=== PATIENT | male | born 1945 | race Caucasian/White ===

== ENCOUNTER → 2016-11-08 | Outpatient (CLI) | payer MEDICARE | LOC: LAB.O 11:22 | PROVIDERS: ATTEND Psychiatry & Neurology Neurology | DX: Z01.812 Encounter for preprocedural laboratory examination (principal) ==

== ENCOUNTER → 2016-11-24 | Outpatient (CLI) | payer MEDICARE | END | disposition home or self-care (01) | LOC: LAB.O 12:22 | PROVIDERS: ATTEND Psychiatry & Neurology Neurology | DX: Z01.812 Encounter for preprocedural laboratory examination (principal) ==

== ENCOUNTER → 2017-03-14 | Outpatient (CLI) | payer MEDICARE ==
--- NOTE | 2017-03-15 15:30 | RAD ---
EXAM DESCRIPTION: Ankle,Left 3 Views CLINICAL HISTORY: 71 years Male, ANKLE PAIN FOR 1 WEEK COMPARISON: None. FINDINGS: 3 views of the left ankle show mild diffuse soft tissue swelling without acute fracture or malalignment. The tibiotalar joint space and talar dome are well-maintained. There are small calcaneal spurs at the insertion sites of the plantar fascia and Achilles tendon. IMPRESSION: Probable mild soft tissue swelling without fracture or malalignment. Calcaneal spurring. Electronically signed by: Pablo Gray MD 03/15/2017 3:30 PM CDT Workstation: [facility]
== END ==
LOC: YCFC.O 14:07
PROVIDERS: ATTEND Nurse Practitioner Family
DX: M25.572 Pain in left ankle and joints of left foot (principal); M77.32 Calcaneal spur, left foot

== ENCOUNTER → 2017-07-26 | Outpatient (CLI) | payer MEDICARE | END | disposition home or self-care (01) | LOC: GMAL 15:04 | PROVIDERS: ATTEND Family Medicine | DX: D51.3 Other dietary vitamin B12 deficiency anemia (principal); Z12.5 Encounter for screening for malignant neoplasm of prostate; R53.83 Other fatigue; E55.9 Vitamin D deficiency, unspecified | CPT/HCPCS: 82306; 82607; 84443; G0103 ==

== ENCOUNTER → 2018-01-25 | Outpatient (CLI) | payer MEDICARE | LOC: GMAL 14:24 | PROVIDERS: ATTEND Family Medicine | DX: D51.3 Other dietary vitamin B12 deficiency anemia (principal) ==

== ENCOUNTER 2018-05-01 11:16 | Emergency (ER) | payer MEDICARE ==
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
[2018-05-01 13:57] VITALS: BP 112/70; TEMP 98; O2SAT 95
== END 2018-05-01 13:57 | disposition home or self-care (01) ==
LOC: ER 11:16
DX: S82.142A Displaced bicondylar fracture of left tibia, initial encounter for closed fracture (principal); S39.012A Strain of muscle, fascia and tendon of lower back, initial encounter; S20.212A Contusion of left front wall of thorax, initial encounter; J44.9 Chronic obstructive pulmonary disease, unspecified; J45.909 Unspecified asthma, uncomplicated; Z86.73 Personal history of transient ischemic attack (TIA), and cerebral infarction without residual deficits; Z79.899 Other long term (current) drug therapy; W55.22XA Struck by cow, initial encounter; Y92.9 Unspecified place or not applicable

== ENCOUNTER → 2018-05-10 | Outpatient (CLI) | payer MEDICARE ==
--- NOTE | 2018-05-10 13:34 | RAD ---
EXAM DESCRIPTION: Knee,Left Complete CLINICAL HISTORY: 72 years Male, KNEE PAIN TECHNIQUE: 4 views of the left knee were performed. COMPARISON: Radiographs of the left knee dated 05/01/2018. FINDINGS: The visualized bones appear well mineralized. Mildly comminuted fracture of the lateral tibial plateau is again noted. There is tiny suprapatellar joint effusion. Atherosclerotic calcifications of the popliteal artery are identified. The soft tissues appear grossly unremarkable. IMPRESSION: No significant interval healing of the lateral tibial plateau fracture. Electronically signed by: Pati Howell MD 05/10/2018 1:33 PM CDT
== END ==
LOC: RAD 09:16
PROVIDERS: ATTEND Orthopaedic Surgery
DX: M25.562 Pain in left knee (principal)

== ENCOUNTER → 2018-06-15 | Outpatient (CLI) | payer MEDICARE ==
--- NOTE | 2018-06-15 12:58 | RAD ---
EXAM DESCRIPTION: Knee,Left Complete CLINICAL HISTORY: FX COMPARISON: May 18, 2018 IMPRESSION: 4 views of the left knee again demonstrate comminuted nondisplaced lateral tibial plateau fracture. There remains indistinctness of the fracture margin suggesting partial healing without complete bony healing or callus formation. Fracture fragments are unchanged from previous exam. Small suprapatellar joint effusion is similar to decreased from previous. Severe vascular calcifications are identified. Electronically signed by: Phillip Mills MD 06/15/2018 12:57 PM CDT
== END ==
LOC: RAD 09:04
PROVIDERS: ATTEND Orthopaedic Surgery
DX: S82.102D Unspecified fracture of upper end of left tibia, subsequent encounter for closed fracture with routine healing (principal)

== ENCOUNTER → 2018-07-16 | Outpatient (CLI) | payer MEDICARE ==
--- NOTE | 2018-07-16 15:44 | RAD ---
EXAM DESCRIPTION: Knee,Left Complete CLINICAL HISTORY: FX OF TIBIAL PLATEAU COMPARISON: 01 May 2018 TECHNIQUE: 3 views left FINDINGS: A lateral tibial plateau fracture is observed. No significant depression is observed. A small joint effusion is seen. Calcific atherosclerotic changes observed in the popliteal artery. IMPRESSION: Lateral tibial plateau fracture is again observed. The fracture is become less well-defined suggesting interval healing. Electronically signed by: Sascha Schwab MD 07/16/2018 3:42 PM CDT
== END ==
LOC: RAD 09:21
PROVIDERS: ATTEND Orthopaedic Surgery
DX: S82.102D Unspecified fracture of upper end of left tibia, subsequent encounter for closed fracture with routine healing (principal)

== ENCOUNTER → 2018-07-31 | Outpatient (CLI) | payer MEDICARE | LOC: GMAL 14:35 | PROVIDERS: ATTEND Family Medicine | DX: E55.9 Vitamin D deficiency, unspecified (principal); Z12.5 Encounter for screening for malignant neoplasm of prostate | CPT/HCPCS: 82306; G0103 ==

== ENCOUNTER → 2018-09-14 | Outpatient (CLI) | payer MEDICARE ==
--- NOTE | 2018-09-15 08:52 | RAD ---
EXAM: Knee,Left Complete CLINICAL HISTORY: FX OF TIBIAL PLATEAU COMPARISON STUDY: Left knee x-rays July 16, 2018 and June 15, 2018 TECHNICAL: 6 x-rays of the left knee FINDINGS: A vertical fracture through the lateral tibial plateau is again identified. A separation of the lateral articular surface is similar to the recent comparison study. There is incomplete fusion at this time. There is no new fracture or dislocation. There is no joint effusion. Atherosclerotic calcifications are present. IMPRESSION: Ongoing healing of the left lateral tibial plateau fracture. Electronically signed by: Ron Batista MD 09/15/2018 8:50 AM [facility]
== END ==
LOC: RAD 07:37
PROVIDERS: ATTEND Orthopaedic Surgery
DX: S82.102D Unspecified fracture of upper end of left tibia, subsequent encounter for closed fracture with routine healing (principal)

== ENCOUNTER → 2019-01-16 | Outpatient (CLI) | payer MEDICARE ==
[~2019-01-16] MED LIST: ALBUTEROL SULFATE 2.5 MG/3 ML VIAL NEB ONE
== END ==
LOC: RESP 10:15
PROVIDERS: ATTEND Family Medicine
DX: J44.1 Chronic obstructive pulmonary disease with (acute) exacerbation (principal)
CPT/HCPCS: 94060; J7611

== ENCOUNTER → 2019-03-12 | Outpatient (CLI) | payer MEDICARE | LOC: GMAL 10:33 | PROVIDERS: ATTEND Family Medicine | DX: D51.3 Other dietary vitamin B12 deficiency anemia (principal); I10 Essential (primary) hypertension; E78.2 Mixed hyperlipidemia ==

== ENCOUNTER → 2019-12-25 | Outpatient (CLI) | payer MEDICARE ==
--- NOTE | 2019-12-25 16:44 | MRI ---
EXAM DESCRIPTION: Lumbar Spine w/o Contrast : Magnetic Resonance Imaging. CLINICAL HISTORY: COMPRESSION FX OF L2 COMPARISON: MRI lumbar spine without contrast December 2015. TECHNIQUE: Multiplanar, multiple standard sequences, non contrast MRI, lumbar spine. FINDINGS: L5-S1: The disc is well visualized on axial T2 series 501, image 3. Disc desiccation with posterior disc space loss and minimal endplate reactive changes. Posterior midline bulge 4 mm abutting the thecal sac and the descending right S1 nerve above the lateral subarticular recess. Retrolisthesis 3 mm. Degenerative hypertrophy of the facet joints and posterior flavum ligaments (canal elements). AP canal diameter 10 mm, no change from the prior study. Moderate to severe narrowing of the right foramen and stenosis of the left foramen, stable from the prior study T12-L1: Superior L1 endplate is depressed with 2 mm retropulsion but not touching the cord. Marrow edema in the upper vertebral body and endplate with minimal extension into the base of the left pedicle. Otherwise normal edema in the posterior elements. Normal signal in the T12-L1 disc. No bulging posteriorly. AP canal diameter at the level of retropulsion is 10.5 mm, 16 mm on the prior study. Minimal hypertrophic degenerative changes in the canal elements. Bilateral mild foraminal narrowing. Conus terminates just above the L1-L2 disc. L1-L2: Minimal depression of the superior L2 endplate with marrow edema. 2 mm retropulsion of the posterior endplate. No marrow edema in the pedicles with more marrow edema on the left side of the vertebral bodies and the right. Minimal desiccation of the disc expanding into the concave endplate. AP canal diameter 11 mm, 15 mm on the prior study. Inferior endplate unremarkable. No significant disc bulge. Minimal degenerative hypertrophy of the canal elements. Bilateral mild to moderate foraminal narrowing more on the right. L2-L3: Concavity of the superior L3 endplate which is depressed and containing fracture lines and marrow edema. No retropulsion. No marrow edema in the pedicles. Disc expanding into the depressed superior endplate is desiccated but not bulging. Hypertrophic degenerated canal elements with AP canal diameter 10 mm. Mild left foraminal narrowing and mild to moderate right foraminal narrowing. L3-L4: Disc desiccation and disc space loss posterior. On the moderate endplate reactive changes. Hypertrophic canal elements bilaterally with AP canal diameter 8 mm. Mild to moderate narrowing left foramen and moderate narrowing of the right foramen. L4-L5: Disc desiccation with disc space maintained. Minimal posterior endplate reactive changes. Posterior broad-based bulge with focal protrusion in the midline abutting the thecal sac. Hypertrophic degenerated canal elements bilaterally. AP canal diameter 5.5 mm. Bilateral moderate foraminal narrowing, more on the left. T11: Marked compression of the central and anterior vertebral body. Minimal marrow edema centrally and edema in the T10-T11 disc and T11-T12 disc. Retropulsion just below the superior endplate with possible canal stenosis. Please see thoracic spine MRI images and report. No significant scoliosis. Paravertebral soft tissues minimal soft tissue edema at the L1 level.. Distal cord normal signal and caliber. Heterogeneous marrow signal in the remaining vertebral bodies and the posterior elements. Vertebral bodies are not compressed at any level. IMPRESSION: 1. Multiple superior endplate compression injuries at L1, L2, and L3 with minimal retropulsion at L1, and L2. Borderline mild central canal stenosis at both levels which has progressed since the prior study. The T12-L1 fracture extends into the base of the left pedicle. The fractures are stable. 2. 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 3. L4-L5 posterior midline disc protrusion and severe central canal stenosis and bilateral subarticular recess narrowing versus stenosis. This is progressed since the prior study. 4. Severe central and anterior compression type vertebral body fracture T11. Please see thoracic spine MR images and report. Electronically signed by: Graham Gillespie MD 12/25/2019 4:42 PM CDT
--- NOTE | 2019-12-25 17:20 | MRI ---
EXAM DESCRIPTION: Thoracic Spine w/o Contrast: Magnetic Resonance Imaging. CLINICAL HISTORY: RADICULOPATHY COMPARISON: MRI scan lumbar spine on this visit and CT scan lumbar spine December 08. Lumbar radiographs December 15. TECHNIQUE: Multiplanar, multiple standard sequences, non contrast MRI, thoracic spine. FINDINGS: Marked compression fracture of the central and anterior mid T11 vertebral body with anterior bulging of the anterior cortical wall and retropulsion of the posterior vertebral body 5.5 mm. The retropulsed segment is impressing on the distal thoracic cord with AP canal diameter 6 mm. No edema in the cord. Desiccation of the T11-T12 disc but no significant bulging. Moderate to severe narrowing right foramen and left foraminal stenosis. Minimal bilateral facet arthrosis. Desiccation of the T10-T11 disc and tiny posterior bulge. Mild bilateral foraminal narrowing and mild canal narrowing. Marrow edema in the T7 vertebral body with loss of height centrally more than anteriorly. Edema more in the inferior endplate with fracture line. No edema in the bilateral pedicles. Retropulsion of the inferior endplate 2 mm. Expansion superiorly T7-T8 disc space with minimal desiccation. Minimal canal and foraminal narrowing. Facet joints are unremarkable. Minimal desiccation T6-T7 disc with no posterior bulging. Mild to moderate narrowing left foramen and mild narrowing of the right foramen. Facet joints are negative. Minimal desiccation of the T9-T10 disc with Schmorl's nodes superior T10 endplate. Tiny posterior disc bulge. Mild canal narrowing. Minimal hypertrophy of the facet joints. Bilateral foramina are patent. Minimal endplate spondylosis T2-T3 with desiccation of the disc. No posterior bulging. Posterior endplate spurs with minimal canal narrowing. Bilateral foramina are patent. Remaining discs with normal signal. Disc spaces are preserved. Canal and foramina are patent. Facet joints are unremarkable. Cord with normal signal, no compression. Dextroscoliosis T6-T10. Compensatory levoscoliosis above and below these segments. Paravertebral soft tissues are unremarkable.. Hyperintense circumscribed T1 and T2 hemangiomas at T8, T6, T5. Otherwise marrow demonstrates inhomogeneous marrow signal in the remaining vertebral bodies and the posterior elements. No compression type fractures at other levels. IMPRESSION: 1. Marked compression of the central and anterior T11 vertebral body but no marrow edema suggesting an old or chronic injury. Retropulsion of the superior vertebral body against the cord with minimal cord compression but no cord edema. Severe canal stenosis at this level. Left neural foraminal stenosis at T11-T12 with possible compromise left T11 nerve. 2. Acute or subacute mild compression injury inferior T7 endplate with concavity in the endplate. Tiny posterior retropulsion abutting the cord but no canal stenosis. Bilateral foramina are patent. 3. Minimal endplate changes at T9-T10 and T2-T3 with no canal or neural foraminal stenosis. Remaining discs and disc spaces are unremarkable with no canal or foraminal stenosis. Electronically signed by: Graham Gillespie MD 12/25/2019 5:19 PM CDT
== END ==
LOC: MRI 07:00
PROVIDERS: ATTEND Psychiatry & Neurology Neurology
DX: S32.020A Wedge compression fracture of second lumbar vertebra, initial encounter for closed fracture (principal); S32.010A Wedge compression fracture of first lumbar vertebra, initial encounter for closed fracture; S32.030A Wedge compression fracture of third lumbar vertebra, initial encounter for closed fracture; M48.54XA Collapsed vertebra, not elsewhere classified, thoracic region, initial encounter for fracture; M48.04 Spinal stenosis, thoracic region; M47.896 Other spondylosis, lumbar region; M51.26 Other intervertebral disc displacement, lumbar region; M48.061 Spinal stenosis, lumbar region without neurogenic claudication; M54.13 Radiculopathy, cervicothoracic region